=== PATIENT | female | born 2000 | race Caucasian/White ===

== ENCOUNTER 2018-11-16 00:44 | Inpatient (IN) | payer MEDICAID, OTHER ==
[~2018-11-16] VITALS: Ht 154.9 cm; Wt 47.5 kg
[2018-11-16] MEDS ORDERED: CEPH-443 PO (03:44)
[2018-11-16] MEDS: CEPHALEXIN 500 MG CAP PO ONE ×2 (04:37→04:41)
[2018-11-16] MEDS ORDERED: ACETAMINOPHEN 325 MG TAB PO PRN (05:00)
[2018-11-16] MEDS ORDERED: ONDANSETRON 4 MG INJ IV PRN (05:00)
--- NOTE | 2018-11-16 05:55 | ERD ---
ER Documentation Chief Complaint Chief Complaint lower abdominal pain x 2 days. states 2 weeks . denies vb HPI This is a 17-year-old female patient who presents to the emergency room with complaint of by lateral lower abdominal pain x2 weeks. States she took home test yesterday and it was positive. . Denies vaginal bleeding, no dysuria, no vaginal discharge, no fevers. No chronic medical problems. ROS All systems reviewed and are negative except as per history of present illness. Medications Home Meds Active Scripts Cephalexin* (Keflex*) 500 Mg Capsule, 500 MG PO BID for CYSTITIS for 5 Days, #10 CAP Prov:BOYD GREER [employer] 11/16/18 Allergies Allergies: Coded Allergies: No Known Drug Allergies (Verified Allergy, Unknown, 11/16/18) PMhx/Soc Medical and Surgical Hx: pt denies Medical Hx, pt denies Surgical Hx Hx Alcohol Use: No Hx Substance Use: No Hx Tobacco Use: No Smoking Status: Never smoker FmHx Family History: No diabetes, No coronary disease, No other Physical Exam Vitals Vital Signs Date Temp Pulse Resp B/P (MAP) Pulse Ox O2 O2 Flow FiO2 Time Delivery Rate 11/16/18 99.9 136 20 119/63 99 00:50 (81) Physical Exam Const: No acute distress Head: Atraumatic Eyes: Normal Conjunctiva, PERRL ENT: Normal External Ears, Nose and Mouth. Pharynx pink, moist, no lesions, no exudate Neck: Full range of motion. No meningismus. No lymphadenopathy Resp: Clear to auscultation bilaterally, no wheezing rales or rhonchi Cardio: Regular rate and rhythm, no murmurs Abd: Soft, tender to palpation at R/L hips, non distended. Normal bowel sounds Skin: No petechiae or rashes Back: No midline or flank tenderness, no CVT Ext: No cyanosis, or edema Neur: Awake and alert Psych: Normal Mood and Affect Result Diagram: 11/16/18 0142 Results 24 hrs Laboratory Tests Test 11/16/18 01:42 White Blood Count 12.5 10^3/ul Red Blood Count 3.92 10^6/ul Hemoglobin 11.6 g/dl Hematocrit 34.9 % Mean Corpuscular Volume 89.0 fl Mean Corpuscular Hemoglobin 29.6 pg Mean Corpuscular Hemoglobin Concent 33.2 g/dl Red Cell Distribution Width 12.1 % Platelet Count 210 10^3/UL Mean Platelet Volume 10.9 fl Immature Granulocytes % 0.600 % Neutrophils % 74.9 % Lymphocytes % 12.0 % Monocytes % 10.8 % Eosinophils % 1.2 % Basophils % 0.5 % Nucleated Red Blood Cells % 0.0 /100WBC Immature Granulocytes # 0.070 10^3/ul Neutrophils # 9.4 10^3/ul Lymphocytes # 1.5 10^3/ul Monocytes # 1.4 10^3/ul Eosinophils # 0.2 10^3/ul Basophils # 0.1 10^3/ul Nucleated Red Blood Cells # 0.0 10^3/ul Urine Color YELLOW Urine Clarity CLOUDY Urine pH 6.0 Urine Specific [place] 1.021 Urine Ketones 1+ mg/dL Urine Nitrite POSITIVE mg/dL Urine Bilirubin NEGATIVE mg/dL Urine Urobilinogen 1+ mg/dL Urine Leukocyte Esterase NEGATIVE Diane/ul Urine Microscopic RBC 4 /HPF Urine Microscopic WBC 1 /HPF Urine Squamous Epithelial Cells FEW /HPF Urine Amorphous Crystals FEW /HPF Urine Bacteria FEW /HPF Urine Mucus FEW /HPF Urine Hemoglobin 1+ mg/dL Urine Glucose NEGATIVE mg/dL Urine Total Protein NEGATIVE mg/dl Beta HCG, Quantitative 649.2 mIU/ml Current Medications Medications Dose Sig/Brandt Start Time Status Last (Trade) Ordered Route PRN Stop Time Admin Dose Reason Admin Cephalexin 500 mg ONCE ONCE 11/16/18 DC 11/16/18 (Keflex) PO 04:00 11/16/18 04:41 04:01 Ondansetron 4 mg BRIDGE ORDER 11/16/18 HCl (Zofran PRN IV 05:00 11/17/18 Inj) NAUSEA/VOMITI 04:59 NG 650 mg ER BRIDGE 11/16/18 Acetaminophen PRN PO 05:00 11/17/18 (Tylenol .MILD PAIN 04:59 Tab) 1-3 OR TEMP Procedures/MDM This is a 17-year-old female who presents emergency room with lower abdominal pain and concern for early . ED COURSE: The patient was stable throughout ED course. DIAGNOSTIC IMAGING: Read by radiologist. IMPRESSION: No visualized intrauterine gestation. Probable complex cyst of the right ovary rather than ectopic although ectopic cannot be excluded with this examination. Mild pelvic free fluid. Beta HCG followup is suggested. MEDICATIONS GIVEN: Keflex Patient tolerated medication well with no adverse reactions. MDM: Urine results show UTI, treatment has been initiated in the ER. BHCG 649 US OB: No IUP. As the patient's BHCG is positive without visualized IUP, ectopic cannot be eliminated as source of patient's pain. On-call OB, Dr. Hall consulted. OBS admission ordered. Dr. Carolina assisted in admission orders. Departure Diagnosis: Primary Impression: Cystitis during in first trimester, antepartum Additional Impression: , first Condition: Stable Patient Instructions: Adapting to : First Trimester, Cystitis Referrals: [facility] YOU HAVE RECEIVED A MEDICAL SCREENING EXAM AND THE RESULTS INDICATE THAT YOU DO NOT HAVE A CONDITION THAT REQUIRES URGENT TREATMENT IN THE EMERGENCY DEPARTMENT. FURTHER EVALUATION AND TREATMENT OF YOUR CONDITION CAN WAIT UNTIL YOU ARE SEEN IN YOUR DOCTORS OFFICE WITHIN THE NEXT 1-2 DAYS. IT IS YOUR RESPONSIBILITY TO MAKE AN APPOINTMENT FOR FOLOW-UP CARE. IF YOU HAVE A PRIMARY DOCTOR --you should call your primary doctor and schedule an appointment IF YOU DO NOT HAVE A PRIMARY DOCTOR YOU CAN CALL OUR PHYSICIAN REFERRAL HOTLINE AT IF YOU CAN NOT AFFORD TO SEE A PHYSICIAN YOU CAN CHOSE FROM THE FOLLOWING [facility] [address]. [facility] [address] [facility] [facility] [address] [facility] [facility] [address] [facility] [facility]. [facility] [address] [facility]. [facility]. [address] Additional Instructions: Thank you very much for allowing us to participate in your care. Your health and safety is our top priority at [facility]. Call your primary care doctor TOMORROW for an appointment during the next 2-4 days and bring all the information and medications prescribed. Have prescriptions filled and follow precisely the directions on the label. If the symptoms get worse and your provider is unavailable, return to the Emergency Department immediately. BOYD GREER NP Nov 16, 2018 05:47
[2018-11-16 08:17] VITALS: BP 94/50; PULSE 116; RESP 18
[2018-11-16 08:19] VITALS: Ht 154.9 cm; Wt 47.5 kg
[2018-11-16 14:07] VITALS: BP 113/58; PULSE 125; RESP 18
--- NOTE | 2018-11-16 15:27 | HP ---
Date/Time of Note Date/Time of Note DATE: 11/16/18 TIME: 15:26 Assessment/Plan Lines/Catheters IV Catheter Type (from Nrsg): Peripheral IV Assessment/Plan Result Diagram: 11/16/18 0142 Results 24hrs Laboratory Tests Test 11/16/18 01:42 11/16/18 13:00 11/16/18 15:10 White Blood Count 12.5 H Pending Red Blood Count 3.92 L Pending Hemoglobin 11.6 L Pending Hematocrit 34.9 L Pending Mean Corpuscular Volume 89.0 Pending Mean Corpuscular Hemoglobin 29.6 Pending Mean Corpuscular Hemoglobin Concent 33.2 Pending Red Cell Distribution Width 12.1 Pending Platelet Count 210 Pending Mean Platelet Volume 10.9 H Pending Immature Granulocytes % 0.600 H Neutrophils % 74.9 H Lymphocytes % 12.0 L Monocytes % 10.8 Eosinophils % 1.2 Basophils % 0.5 Nucleated Red Blood Cells % 0.0 Immature Granulocytes # 0.070 H Neutrophils # 9.4 H Lymphocytes # 1.5 Monocytes # 1.4 H Eosinophils # 0.2 Basophils # 0.1 Nucleated Red Blood Cells # 0.0 Urine Color YELLOW Urine Clarity CLOUDY A Urine pH 6.0 Urine Specific [place] 1.021 Urine Ketones 1+ H Urine Nitrite POSITIVE A Urine Bilirubin NEGATIVE Urine Urobilinogen 1+ H Urine Leukocyte Esterase NEGATIVE Urine Microscopic RBC 4 Urine Microscopic WBC 1 Urine Squamous Epithelial Cells FEW Urine Amorphous Crystals FEW A Urine Bacteria FEW A Urine Mucus FEW A Urine Hemoglobin 1+ H Urine Glucose NEGATIVE Urine Total Protein NEGATIVE Beta HCG, Quantitative 649.2 771.0 HPI/ROS Admit Date/Time Admit Date/Time Nov 16, 2018 at 04:39 PMH/Family/Social Past Medical History Medications Current Medications Ondansetron HCl (Zofran Inj) 4 mg BRIDGE ORDER PRN IV NAUSEA/VOMITING; Start 11/16/18 at 05:00; Stop 11/17/18 at 04:59 Acetaminophen (Tylenol Tab) 650 mg ER BRIDGE PRN PO .MILD PAIN 1-3 OR TEMP; Start 11/16/18 at 05:00; Stop 11/17/18 at 04:59 Coded Allergies: No Known Drug Allergies (Verified Allergy, Unknown, 11/16/18) Social History Smoking Status: Never smoker Exam/Review of Systems Vital Signs Vitals Vital Signs Date Temp Pulse Resp B/P (MAP) Pulse Ox O2 O2 Flow FiO2 Time Delivery Rate 11/16/18 99.1 125 18 113/58 99 Room Air 14:07 (76) BELEN COOPER MD Nov 16, 2018 15:27
[2018-11-16 17:00] VITALS: PULSE 110
[2018-11-16] MEDS ORDERED: LACTATED RINGER'S 1,000 ML IV ONE ×2 (17:00)
--- NOTE | 2018-11-16 18:17 | HP ---
Date/Time of Note Date/Time of Note DATE: 11/16/18 TIME: 18:08 Assessment/Plan VTE Prophylaxis SCD applied (from Nsg): No SCD contraindicated: low risk/ambulating Pharmacological prophylaxis: NA/contraindicated Pharm contraindication: other Lines/Catheters IV Catheter Type (from Nrsg): Peripheral IV Assessment/Plan Hospital Course None discriminatory hCG in early No evidence of IUP. Right adnexal cystic structure, cannot rule out ectopic Right lower abdominal intermittent pain Serum hCG not discriminatory. Patient currently hemodynamically stable is desired Cannot rule out early IUP with right hemorrhagic versus corpus luteal cyst. Discussed above findings with the patient and family Tachycardia, normal blood pressure, likely related to anxiety as well as dehydration. Patient was not getting IV fluids since admission. Tachycardia improved after received bolus Patient is asymptomatic We will continue inpatient management with repeat serum hCG after 48 hours with close monitoring, abdominal examination follow-up with the vitals Follow-up with repeat hCG after 48 hours. If doubled, likely IUP Plan of care discussed with patient and family. We will continue hemoglobin every 2 hours x3 and monitor closely case will be singed out to the next upcoming OB Hospitalist for follow up Problems: (1) , first Status: Acute (2) Cystitis during in first trimester, antepartum Status: Acute Result Diagram: 11/16/18 1510 Results 24hrs Laboratory Tests Test 11/16/18 01:42 11/16/18 13:00 11/16/18 15:10 White Blood Count 12.5 H 15.3 #H Red Blood Count 3.92 L 4.28 Hemoglobin 11.6 L 12.7 Hematocrit 34.9 L 38.0 Mean Corpuscular Volume 89.0 88.8 Mean Corpuscular Hemoglobin 29.6 29.7 Mean Corpuscular Hemoglobin Concent 33.2 33.4 Red Cell Distribution Width 12.1 12.1 Platelet Count 210 211 Mean Platelet Volume 10.9 H 11.0 H Immature Granulocytes % 0.600 H 0.500 H Neutrophils % 74.9 H 79.4 H Lymphocytes % 12.0 L 8.7 L Monocytes % 10.8 10.6 Eosinophils % 1.2 0.5 Basophils % 0.5 0.3 Nucleated Red Blood Cells % 0.0 0.0 Immature Granulocytes # 0.070 H 0.070 H Neutrophils # 9.4 H 12.2 H Lymphocytes # 1.5 1.3 Monocytes # 1.4 H 1.6 H Eosinophils # 0.2 0.1 Basophils # 0.1 0.1 Nucleated Red Blood Cells # 0.0 0.0 Urine Color YELLOW Urine Clarity CLOUDY A Urine pH 6.0 Urine Specific [place] 1.021 Urine Ketones 1+ H Urine Nitrite POSITIVE A Urine Bilirubin NEGATIVE Urine Urobilinogen 1+ H Urine Leukocyte Esterase NEGATIVE Urine Microscopic RBC 4 Urine Microscopic WBC 1 Urine Squamous Epithelial Cells FEW Urine Amorphous Crystals FEW A Urine Bacteria FEW A Urine Mucus FEW A Urine Hemoglobin 1+ H Urine Glucose NEGATIVE Urine Total Protein NEGATIVE Beta HCG, Quantitative 649.2 771.0 HPI/ROS Admit Date/Time Admit Date/Time Nov 16, 2018 at 04:39 Hx of Present Illness 17-year-old G1, P0 with new episode of almost about 4 to 5 weeks based on stated LMP presented to the hospital with complaint of right-sided lower abdominal pain since 3 days ago. Per patient pain is intermittent last each time 20 minutes and resolved. She also complains of occasional dizziness. was desired. She denies any vaginal bleeding. She denies any dizz iness, lightheadedness, shortness of breath or chest pain or any other symptoms She had a pelvic ultrasound that showed a complex mixed echogenicity rounded lesion in the right ovary measuring 1.9 cm was seen. HC's range ROS Constitutional: No no complaints, No improved, No chills, No diaphoresis, No disoriented, No fatigue, No febrile, No nausea, No poor po, No weight change, No other Eyes: No no complaints, No pain, No discharge, No redness, No visual change, No other ENT: No no complaints, No bleeding, No pain, No congestion, No discharge, No dysphagia, No sore throat, No other Respiratory: No no complaints, No pain, No cough, No pleuritic pain, No shortness of breath, No sputum, No wheezing, No other Cardiovascular: No no complaints, No chest pain, No edema, No lightheadedness, No orthopenea, No palpitations, No paroxysmal nocturnal dyspnea, No other Gastrointestinal: pain; No no complaints, No blood, No constipation, No decreased appetite, No diarrhea, No flatus, No nausea, No passing stool, No vomiting, No other Genitourinary: No no complaints, No bleeding, No dysuria, No discharge, No flank pain, No hematuria, No other Musculoskeletal: No no complaints, No back pain, No bone/joint pain, No neck pain, No restricted range of motion, No swelling, No other Skin: No no complaints, No bruising, No erythema, No laceration, No pruritis, No rash, No skin lesions, No other Neurologic: No no complaints, No confusion, No dizziness, No focal-weakness, No headache, No syncope, No seizure, No other Endocrine: No no complaints, No polyuria, No polydypsia, No dry skin, No temp intolerance, No weight change, No other Lymphatic: No no complaints, No adenopathy, No tender nodes, No lymphadema, No other Psychological: No no complaints, No nl mood/affect, No anxiety, No confusion, No depression, No suicidal, No other Immunologic: No no complaints, No immunodeficiency, No pruritis, No rhinitis, No urticaria, No other PMH/Family/Social Past Medical History Past medical history: Denies Medications Current Medications Ondansetron HCl (Zofran Inj) 4 mg BRIDGE ORDER PRN IV NAUSEA/VOMITING; Start 11/16/18 at 05:00; Stop 11/17/18 at 04:59 Acetaminophen (Tylenol Tab) 650 mg ER BRIDGE PRN PO .MILD PAIN 1-3 OR TEMP; Start 11/16/18 at 05:00; Stop 11/17/18 at 04:59 Coded Allergies: No Known Drug Allergies (Verified Allergy, Unknown, 11/16/18) Past Surgical History Past Surgical Hx: no surgical history Family History Significant Family History: no pertinent family hx Social History Alcohol Use: none Smoking Status: Never smoker Drug Use: none Exam/Review of Systems Vital Signs Vitals Vital Signs Date Temp Pulse Resp B/P (MAP) Pulse Ox O2 O2 Flow FiO2 Time Delivery Rate 11/16/18 110 17:00 11/16/18 99.1 18 113/58 99 Room Air 14:07 (76) Exam Constitutional: alert, oriented, well developed Psych: no complaints, nl mood/affect, anxiety Head: normocephalic, atraumatic ENMT: nl external ears & nose, nl lips & teeth Neck: supple (External genitalia within normal limits. Speculum examination: Cervix appears normal. No abnormal vaginal discharge. No cervical lesion. Tenderness and moving of the cervix to the left side noted. There is tenderness to palpation on the right lower abdomen. Abdomen: Soft, slight tenderness in the right side of the abdomen. No rebound tenderness, no guarding no rigidity no evidence of acute abdomen) Respiratory: clear to auscultation, normal air movement Cardiovascular: regular rate and rhythm, nl pulses Gastrointestinal: soft Additional Comments ROCEDURE: US pelvis complete and transvaginal CLINICAL INDICATION: NO BLEEDING, UNKNOWN LMP, BL PELVIC PAIN TECHNIQUE: Phillips scale and color Doppler imaging of the pelvis was performed. Endovaginal scanning was performed for more detailed evaluation of the endometrium. The images were reviewed on a PACS workstation. COMPARISON: None. FINDINGS: The uterus was not measured appear grossly unremarkable. Tiny cervical Nabothian cysts were seen. The endometrial stripe was not measured by the teletype technician but measures approximate 7 mm in thickness. No intrauterine gestational sac was seen. A small of free fluid was seen in the cul-de-sac and adjacent to the right ovary. The right ovary measures 4.4 x 2.4 x 3.3 cm and the left ovary measures 4 x 2.4 x 1.9 cm. A complex mixed echogenicity rounded lesion in the right ovary measuring 1.9 cm was seen. No flow was seen within the structure. Small bilateral ovarian follicles. A small amount of flow was seen surrounding the right ovarian lesion and gross arterial flow both ovaries was documented. IMPRESSION: No visualized intrauterine gestation. Probable complex cyst of the right ovary rather than ectopic although ectopic cannot be excluded with this examination. Mild pelvic free fluid. Beta HCG followup is suggested. BELEN COOPER MD Nov 16, 2018 18:16
[2018-11-16 21:05] VITALS: BP 111/54; PULSE 112; RESP 18
[2018-11-17] VITALS: BP 115/56; PULSE 127; RESP 17
[2018-11-17 08:16] VITALS: BP 112/60; PULSE 108; RESP 18
--- NOTE | 2018-11-17 14:58 | QN ---
Documentation Comment late entry for service rendered on around 2200 11/16/18 called for evaluation of pelvic pain I was informed by previous laborist she was asymptomatic ,so which is new symptom which increase of possiblity iof more toward ectopidc went up gris,patient laying on side ,bend over due to pain ,found to have generalized tenderness on lower abdomen, explained the situation of possibility of in the tube since we dont see the in utero.also she was told to have UTI ,one dose of cephalexin 5oomg given in ER patient stated that pain is due to UTI , not accepting the info of poss of ectopic . and also patient desired this . It was difficult to accept that information since previous physician told her different info,request to have meal . which wasn't allowed. nursing supervisor refining called me immediately after I left Patient's room ,patient wants to AMA. I explained to supervisor refining the situation patient decidec to stay JAY WADE MD Nov 17, 2018 14:58
--- NOTE | 2018-11-17 15:04 | QN ---
Documentation Comment I got called from nurse for this patient saying patient 's family wants to know the plan,at that time I had another patient needs to go in surgery as soon as possible since shw was hemorrhaging. I informed the nurse to tell family member I will be available as soon as surgery done . But by the time I arrived to 2 NE nurse station,she already left AMA which was 1228 11/17/18 I found out she left at around noon JAY WADE MD Nov 17, 2018 15:04
--- NOTE | 2018-11-17 15:07 | DS ---
Date/Time of Note Date/Time of Note DATE: 11/17/18 TIME: 15:05 Discharge Summary Admission/Discharge Info Admit Date/Time Nov 16, 2018 at 04:39 Discharge Date/Time Nov 17, 2018 at 12:00 Discharge Diagnosis patient AMA before my arrival from my surgery for other patient Hospital Course see our other quick note Home Meds Active Scripts Cephalexin* (Keflex*) 500 Mg Capsule, 500 MG PO BID for CYSTITIS for 5 Days, #10 CAP Prov:BOYD GREER MIGRATION SPECIALIST 11/16/18 Primary Care Provider Care Physician No Primary Pending Labs Laboratory Tests Test 11/16/18 15:10 11/16/18 17:57 11/16/18 20:40 11/16/18 23:22 White Blood 15.3 Count 10^3/ul (4.8-10 .8) Red Blood 4.28 Count 10^6/ul (4.20-5 .40) Hemoglobin 12.7 11.9 12.9 11.4 g/dl (12.0-16.0 g/dl (12.0-16. g/dl (12.0-16. g/dl (12.0-16. ) 0) 0) 0) Hematocrit 38.0 35.4 38.0 33.7 % (37.0-47.0) % (37.0-47.0) % (37.0-47.0) % (37.0-47.0) Mean 88.8 Corpuscular fl (72.0-104.0) Volume Mean 29.7 Corpuscular pg (29.0-33.0) Hemoglobin Mean 33.4 Corpuscular g/dl (32.0-37.0 Hemoglobin Conc ) ent Red Cell 12.1 Distribution % (11.5-14.5) Width Platelet Count 211 10^3/UL (140-41 5) Mean Platelet 11.0 Volume fl (7.4-10.4) Immature 0.500 Granulocytes % % (0.001-0.429) Neutrophils % 79.4 % (30.0-74.0) Lymphocytes % 8.7 % (18.0-55.0) Monocytes % 10.6 % (0.0-13.0) Eosinophils % 0.5 % (0.0-7.0) Basophils % 0.3 % (0.0-2.0) Nucleated Red 0.0 Blood Cells % /100WBC (0.0-0. 0) Immature 0.070 Granulocytes # 10^3/ul (0.0-0. 031) Neutrophils # 12.2 10^3/ul (1.6-7. 5) Lymphocytes # 1.3 10^3/ul (0.8-2. 9) Monocytes # 1.6 10^3/ul (0.3-0. 9) Eosinophils # 0.1 10^3/ul (0.0-0. 5) Basophils # 0.1 10^3/ul (0.0-0. 1) Nucleated Red 0.0 Blood Cells # 10^3/ul (0.0-0. 0) Beta HCG, 792.6 mIU/ml Quantitative Test 11/17/18 00:15 Urine Color YELLOW (YELLOW) Urine Clarity CLEAR (CLEAR) Urine pH 5.0 (5.0-9.0) Urine Specific 1.020 (1.003-1. [place] 030) Urine Ketones 2+ mg/dL (NEGATIVE ) Urine Nitrite NEGATIVE mg/dL (NEGATIVE ) Urine NEGATIVE Bilirubin mg/dL (NEGATIVE ) Urine NEGATIVE Urobilinogen mg/dL (NEGATIVE ) Urine Leukocyte NEGATIVE Diane/ul Esterase Urine 0 /HPF (0-5) Microscopic RBC Urine 1 /HPF (0-5) Microscopic WBC Urine Mucus FEW /HPF (NONE SEEN) Urine 1+ Hemoglobin mg/dL (NEGATIVE ) Urine Glucose NEGATIVE mg/dL (NEGATIVE ) Urine Total NEGATIVE Protein mg/dl (NEGATIVE ) JAY WADE MD Nov 17, 2018 15:07
== END 2018-11-17 12:00 | disposition left against medical advice (07) | DRG 833 ==
LOC: FTE 00:44 → 5EC 04:39 → CANRESERV 07:31 → 2NE 23:43
PROVIDERS: ADMIT Obstetrics & Gynecology Obstetrics; ATTEND Obstetrics & Gynecology Obstetrics
DX: O23.11 Infections of bladder in pregnancy, first trimester (principal); Z3A.01 Less than 8 weeks gestation of pregnancy
CPT/HCPCS: 76801; 76817; 81001; 84702; 85014; 85018; 85025; 86900; 86901; 87086; A4310; J7120